=== PATIENT | male | born 1995 | race Caucasian/White ===

== ENCOUNTER 2016-10-10 10:35 | Emergency (ER) | payer MEDICAID ==
[~2016-10-10] VITALS: Ht 167.6 cm; Wt 89.5 kg
[2016-10-10 10:51] VITALS: Ht 167.6 cm; Wt 89.5 kg
[2016-10-10] MEDS ORDERED: IBUP-1542 PO (12:22)
[2016-10-10] MEDS ORDERED: IBUPROFEN 800 MG TAB PO ONE (12:30)
--- NOTE | 2016-10-10 13:32 | ERD ---
ER Documentation Chief Complaint Date/Time DATE: 10/10/16 TIME: 13:25 Chief Complaint Complains of back pain x 1 week HPI Patient is a 21-year-old male with no medical problems who presents with back pain. The patient has right-sided back pain which started 2 days ago. He is able to walk. It is a squeezing type pain on the right side of his lower back. He has had no treatment as of yet. The pain was worse yesterday. He does not currently have a primary doctor. Upon review of old medical records this is the patient's first visit to the ER. ROS All systems reviewed and are negative except as per history of present illness. Medications Home Meds Active Scripts Ibuprofen* (Motrin*) 600 Mg Tab, 600 MG PO Q6H Y for PAIN AND OR ELEVATED TEMP, #30 TAB Prov:NISA WADE MD 10/10/16 Allergies Allergies: Coded Allergies: No Known Allergy (Unverified , 10/10/16) PMhx/Soc Medical and Surgical Hx: pt denies Medical Hx Hx Alcohol Use: No Hx Substance Use: No Hx Tobacco Use: No FmHx Family History: No diabetes Physical Exam Vitals Vital Signs Date Time Temp Pulse Resp B/P Pulse Ox O2 Delivery O2 Flow Rate FiO2 10/10/16 10:51 98.7 76 20 134/72 98 Physical Exam Const: No acute distress Head: Atraumatic Eyes: Normal Conjunctiva ENT: Normal External Ears, Nose and Mouth. Neck: Full range of motion..~ No meningismus. Resp: Clear to auscultation bilaterally Cardio: Regular rate and rhythm, no murmurs Abd: Soft, non tender, non distended. Normal bowel sounds Skin: No petechiae or rashes Back: Right-sided lower back pain with palpation over the muscles, no deformity or step-off of the mid spine Ext: No cyanosis, or edema Neur: Awake and alert Psych: Normal Mood and Affect Results 24 hrs Current Medications Medications (Trade) Dose Ordered Sig/Sherif Route PRN Reason Start Time Stop Time Status Last Admin Dose Admin Ibuprofen (Motrin) 800 mg ONCE ONCE PO 10/10/16 12:30 10/10/16 12:31 DC 10/10/16 12:34 Procedures/MDM Smoking Cessation Therapy: Pt. was lectured for greater than 3 minutes on the health risks of continued smoking and the benefits of cessation. Patient is a 21-year-old Male with no medical problems who presents with right- sided back pain. His symptoms are consistent with a muscular skeletal back pain at this time I doubt epidural abscess, epidural hematoma, or cauda equina syndrome. I believe outpatient management is appropriate. The patient has not tried anything for pain so ibuprofen was given. The patient will be given a prescription for ibuprofen as well. The patient can return for any worsening symptoms.The patient should follow-up with a primary doctor within 24-48 hours and I will give him information for the local clinics as he does not currently have a primary doctor. Departure Diagnosis: Primary Impression: Back pain Back pain location: low back pain Chronicity: acute Back pain laterality: right Sciatica presence: without sciatica Qualified Code: M54.5 - Acute right-sided low back pain without sciatica Condition: Fair Patient Instructions: Back Pain (Acute Or Chronic) [facility] Usted se triana hecho un examen mdico de control que le indica que no est en oswaldo condicin que requiera tratamiento urgente en el Departamento de Emergencia. Un estudio ms profundo y el tratamiento de rios condicin pueden esperar sin ningn riesgo hasta que usted sea atendida/o en el consultorio de rios mdico o oswaldo cl viviana. Es responsabilidad suya arreglar oswaldo radha para el seguimiento del amelie. MANEJO DE CONDICIONES NO URGENTES EN EL FUTURO 1) Si usted tiene un mdico de atencin primaria: Usted debera llamar a rios mdico de atencin primaria antes de venir al departamento de emergencia. Despus de las horas de consultorio, rios doctor o rios asociado/a est disponible por telfono. El mdico o enfermero de dianne en el servicio telefnico puede asesorarle por alverto medio para atender el problema, o amelie contrario se puede programar oswaldo radha. 2) Si usted no tiene un mdico de atencin primaria: Llame al mdico o clnica de referencia que aparece abajo tonie las horas de consultorio para hacer oswaldo radha para que le vean. CLINICAS: [facility] [phone] [facility] [phone] [facility] [phone] [place] [phone] [place] [phone] [facility]. [phone] [address] Additional Instructions: Llame al doctor MAANA y jostin oswaldo RADHA PARA DENTRO DE 1-2 VARGAS.Dgale a la secretaria que nosotros le instruimos hacer esta radha.Avise o llame si rios condicin se empeora antes de la radha. Regresa aqui si peor o no mejor. NISA WADE MD Oct 10, 2016 13:32
== END 2016-10-10 12:57 | disposition home or self-care (01) ==
LOC: FTE 10:35
DX: M54.5 Low back pain (principal)
CPT/HCPCS: Z7502; Z7610; 99283